=== PATIENT | male | born 1950 | race Caucasian/White ===

== ENCOUNTER → 2016-07-02 | Outpatient (CLI) | payer MEDICAID ==
[2016-07-02 11:02] LABS: ALT 48 U/L (21-72); AST 33 U/L (17-59); Anion Gap 8 mmol/L; Blood Urea Nitrogen 15 mg/dL (9-20); Calcium 9.4 mg/dL (8.4-10.2); Carbon Dioxide 31 mmol/L (22-30); Chloride 105 mmol/L (98-107); Cholesterol 132 mg/dL (<200); Glucose 92 mg/dL (74-99); HDL Cholesterol 32 mg/dL (40-60); Non-African American GFR(MDRD) 57 (>60 ml/min/1.73 sqM); Potassium 4.7 mmol/L (3.5-5.1); Sodium 144 mmol/L (137-145); Triglycerides 223 mg/dL (<150)
[2016-07-02 11:12] LABS: CHCM 34.8; HCT 45.3 % (39.0-53.0); HDW 2.73; HGB 15.4 gm/dL (13.0-17.5); MCH 31.3 pg (25.0-35.0); MCV 92.1 fL (80.0-100.0); Mean Platelet Volume 7.8; RBC 4.92 m/uL (4.30-5.90); RDW 12.1 % (11.5-15.5); WBC 5.3 k/uL (3.8-10.6)
== END | disposition home or self-care (01) ==
LOC: LABWHC1 09:16
PROVIDERS: ATTEND Family Medicine
DX: E78.5 Hyperlipidemia, unspecified (principal)
CPT/HCPCS: 36415; 80048; 80061; 84450; 84460; 85027

== ENCOUNTER → 2016-07-16 | Outpatient (CLI) | payer MEDICAID ==
[2016-07-16 14:12] LABS: Anion Gap 13 mmol/L; Blood Urea Nitrogen 11 mg/dL (9-20); Calcium 9.1 mg/dL (8.4-10.2); Carbon Dioxide 26 mmol/L (22-30); Chloride 105 mmol/L (98-107); Glucose 101 mg/dL (74-99); Non-African American GFR(MDRD) >60 (>60 ml/min/1.73 sqM); Potassium 3.9 mmol/L (3.5-5.1); Sodium 144 mmol/L (137-145)
== END | disposition home or self-care (01) ==
LOC: LABWHC1 13:33
PROVIDERS: ATTEND Family Medicine
DX: R89.9 Unspecified abnormal finding in specimens from other organs, systems and tissues (principal)
CPT/HCPCS: 36415; 80048

== ENCOUNTER 2017-02-15 11:31 | Day surgery (SDC) | payer MEDICAID ==
[2017-02-11 09:57] VITALS: BMI 31.5
[~2017-02-15 11:31] MED LIST: LACTATED RINGERS 1,000 ML IV SCH; LIDOCAINE 1% 20 ML VIAL (10MG/ML) FOR IV START INTRADERMA PRN
[2017-02-15 11:48] VITALS: RESP 16; TEMP 98.5
[2017-02-15] MEDS ORDERED: PROPOFOL 10 MG/ML 20 ML VIAL IV ONE (12:38)
--- NOTE | 2017-02-15 13:04 | P.PCN ---
Date of Procedure: 02/15/17 Procedure(s) Performed: Procedure: Esophagogastroduodenoscopy and biopsy. Operative diagnosis: Chronic reflux symptoms requiring twice a day therapy. Postoperative diagnosis: 1. Sliding hiatal hernia with no obvious esophagitis or complicated reflux disease. 2. Mild antral gastritis. 3. Multiple biopsies obtained from the duodenum, antrum and esophagus. Preparation and sedation: Was provided by anesthesia. Brief clinical history: The patient is a 66-year-old male who is referred for this evaluation because of history of chronic reflux requiring PPI therapy in the morning and H2 bhargav therapy in the evening with incomplete control of his symptoms. There is no alarm symptoms. His last EGD was in November 2005. This evaluation is to assess the degree of his esophagitis rule out complicated reflux disease or other pathology. Procedure: With the patient on his left lateral decubitus position and after informed consent and adequate sedation, I passed the Olympus-GIF 160 video upper endoscope through the cricopharyngeus down the esophagus. GE junction was around 40 cm from the incisors and there was a 2-3 cm sliding hiatal hernia. The esophagus did not show any obvious erosions, ulcers, strictures or Rico's esophagus. The endoscope was then passed into the stomach which was insufflated with air and inspected in detail including the retroflex view in the cardia. There was some mottling and erythema in the antrum but no ulcers or erosions. Pyloric channel, duodenal bulb, post bulbar area and descending duodenum appeared within normal limits. Because of his symptoms, I obtained biopsies from the duodenum, antrum and esophagus then the endoscope was withdrawn. The patient tolerated the procedure well. Plan: The patient was reassured. Will await biopsy results. He will follow up with you as planned and additional recommendations will be made based on his course and biopsy results.
[2017-02-15 13:36] VITALS: BP 138/80; PULSE 52
== END 2017-02-15 13:37 | disposition home or self-care (01) ==
LOC: ORWHC2ENDO 11:31
DX: K29.50 Unspecified chronic gastritis without bleeding (principal); K21.9 Gastro-esophageal reflux disease without esophagitis; K44.9 Diaphragmatic hernia without obstruction or gangrene; I10 Essential (primary) hypertension; E78.5 Hyperlipidemia, unspecified; Z79.899 Other long term (current) drug therapy
CPT/HCPCS: 88305; 88342; 43239; J2704

== ENCOUNTER → 2017-10-27 | Outpatient (CLI) | payer MEDICAID ==
--- NOTE | 2017-10-27 19:43 | CONS ---
CONSULTATION REASON FOR CONSULTATION: Sleep apnea. French is 66, he is coming in due to concerns of sleep apnea. He has loud snoring. His has also noted some occasional few apneas. This raises concern for obstructive sleep apnea. He goes to bed around 10:00 pm, wakes up 6:00 am in the morning. He wakes up refreshed, does not fall asleep during the day to day activities although by the late evening he feels tired. He does not fall asleep at work and does not fall asleep while driving. He does not fall asleep while doing routine day-to-day activities. His current [place] score was 4. No recent weight gain. His weight has been stable. He does drink alcohol occasionally at nighttime. No smoking. He goes to bed around 10:00 pm, wakes up 6:00 am in the morning. He wakes up 7 to 8 am in the morning on weekends. No restlessness in the lower extremities. No reported nightmares or any unusual behavior at night time. PAST MEDICAL HISTORY: Hyperlipidemia and hypertension. PAST SURGICAL HISTORY: Left shoulder surgery. DRUG ALLERGIES: Not known. MEDICATIONS: At home are daily vitamins, Norvasc 5 daily and Lipitor 10 daily and Omeprazole 20 daily. SOCIAL HISTORY: The patient is a nonsmoker. No history of alcohol. No history of drugs. FAMILY HISTORY: Negative for sleep apnea. REVIEW OF SYSTEMS: 12-point review of system was done. Positive findings are mentioned above in the history of present illness. PHYSICAL EXAMINATION: His current vitals is blood pressure is 120/86, pulse 60, respirations 16, temp 98.0, Saturation 97% on room air. Weight is 223. Height is 5 feet 9 inches. Neck is 17.5 inches. [place] score was 4. BMI 32.9. GENERAL APPEARANCE: Calm, comfortable. Head is atraumatic, normocephalic. NECK: Supple. There is no JVD. No goiter or neck masses. Mallampati class 2. LUNGS: Clear to auscultation. HEART: Sounds regular rate and rhythm. Normal S1, S2. No S3, S4. No murmurs. ABDOMEN: Soft, nontender. No organomegaly. EXTREMITIES: No edema. No cyanosis or clubbing. IMPRESSION AND PLAN: 1. Loud snoring, questionable apneas, rule out underlying obstructive sleep apnea. 2. Hypertension. 3. Hyperlipidemia. 4. Obstructive sleep apnea is possible though my overall suspicion is low. We will do a screening home study to assess the presence or rule out sleep apnea. 5. Encourage weight loss. 6. Sleep hygiene measures are good and appropriate. 7. We will continue to follow and I will make further recommendations based on results of the home sleep study testing. ELOY / LAIN: [id number] /
== END | disposition home or self-care (01) ==
LOC: SLEEP 13:53
PROVIDERS: ATTEND Internal Medicine Critical Care Medicine
DX: R06.83 Snoring (principal); I10 Essential (primary) hypertension; E78.5 Hyperlipidemia, unspecified
CPT/HCPCS: 99211

== ENCOUNTER → 2021-06-25 | Outpatient (CLI) | payer MEDICARE, OTHER ==
--- NOTE | 2021-06-26 05:44 | MR ---
EXAMINATION TYPE: MR shoulder LT wo con DATE OF EXAM: 06/25/2021 COMPARISON: HISTORY: Left shoulder pain Multiplanar multiecho imaging of the left shoulder without contrast. There is a 1 cm irregular area of fluid signal at the greater tuberosity humerus that could be degene rative cyst. There is no evidence of a full-thickness tear of the supraspinatus tendon. There is no r etraction. There is some widening of the AC joint space consistent with old ligamentous tear. No sign ificant fluid. The space measures 12 mm. The biceps tendon appears intact. Subscapularis tendon is intact. Glenoid edward appear normal. There is no significant joint fluid. There is some very minimal increased signal in the supraspinatus tendo n on the inferior surface. I see no bony destructive process. The glenoid edward appear intact. IMPRESSION: There is some widening of the AC joint space consistent with old ligamentous tear. No evidence of full-thickness rotator cuff tear. There is minor degenerative signal changes on the in ferior surface of the supraspinatus tendon.
== END | disposition home or self-care (01) ==
LOC: RADMRIMAIN 16:27
PROVIDERS: ATTEND Orthopaedic Surgery
DX: M19.012 Primary osteoarthritis, left shoulder (principal)

== ENCOUNTER 2023-05-04 09:19 | Day surgery (SDC) | payer MEDICARE, OTHER ==
[~2023-05-04 09:19] MED LIST changes: +LIDOCAINE 1% (10MG/ML) FOR IV START INTRADERMA PRN; -LIDOCAINE 1% 20 ML VIAL (10MG/ML) FOR IV START INTRADERMA PRN
[2023-05-04 09:52] VITALS: TEMP 97.2
[2023-05-04] MEDS ORDERED: LIDOCAINE 1% INJ 10MG/ML (20 ML MDV) ONE (10:41)
[2023-05-04] MEDS ORDERED: PROPOFOL 10 MG/ML 20 ML VIAL IV ONE (10:41)
--- NOTE | 2023-05-04 11:04 | P.PCN ---
Date of Procedure: 05/04/23 Procedure(s) Performed: Brief history: Patient is a pleasant 72-year-old white male scheduled for an elective upper endoscopy as well as colonoscopy as a part of evaluation of GERD and screening for colon cancer Procedure performed: Esophagogastroduodenoscopy with biopsy Colonoscopy with snare polypectomy Preoperative diagnosis: GERD Screening for colon cancer Anesthesia: MAC Procedure: After informed consent was obtained from the patient was brought into the endoscopy unit and IV sedation was administered by anesthesia under continuous monitoring. Initially upper endoscopy was done. The Olympus GF 160 video endoscope was inserted inserted into the mouth and esophagus intubated without any difficulty and was gradually advanced into the stomach and duodenum and carefully examined. The bulb and second part of the duodenum appeared normal. The scope was then withdrawn into the stomach adequately insufflated with air and upon careful examination the antrum and body, cardia and fundus appeared normal. Multiple small gastric polyps noted which were biopsied. The scope was then withdrawn into the esophagus. Small hiatal hernia noted. The GE junction was located at 40 cm to the incisors. It appeared regular with no erythema erosions or ulcerations. Rest of the esophagus appeared normal. Patient tolerated the procedure well. At this time the patient continued to remain sedation. Initial digital rectal examination was normal. Olympus CF 160 video colonoscope was then inserted into the rectum and gradually advanced to the cecum without any difficulty. Careful examination was performed as the scope was gradually being withdrawn. The prep was excellent. The cecum, ascending colon, transverse colon, descending colon appeared normal. In the sigmoid there was a 7 mm polyp that was removed by snare polypectomy. Diffuse diverticulosis more prominent in the left colon. Rest of the, sigmoid colon and rectum appeared normal. Retroflexion was performed in the rectum and no lesions were noted. Patient tolerated the procedure well. Impression: 1. Upper endoscopy revealed small hiatal hernia and multiple gastric polyps 2. Colonoscopy revealed 7 mm sigmoid polyp status post polypectomy and scattered diffuse diverticulosis Recommendations: Findings of this examination were discussed with the patient as well as his family. He was advised to follow with the biopsy results. If the biopsy result adenoma, recommend repeat colonoscopy in 5 years
[2023-05-04 11:31] VITALS: RESP 16
[2023-05-04 11:56] VITALS: BP 118/74; PULSE 55
== END 2023-05-04 11:41 | disposition home or self-care (01) ==
LOC: ORWHC2ENDO 09:19
PROVIDERS: ATTEND Internal Medicine Gastroenterology
DX: Z12.11 Encounter for screening for malignant neoplasm of colon (principal); K31.7 Polyp of stomach and duodenum; K44.9 Diaphragmatic hernia without obstruction or gangrene; D12.5 Benign neoplasm of sigmoid colon; K21.9 Gastro-esophageal reflux disease without esophagitis; K57.30 Diverticulosis of large intestine without perforation or abscess without bleeding; I10 Essential (primary) hypertension; E78.5 Hyperlipidemia, unspecified; F17.200 Nicotine dependence, unspecified, uncomplicated; Z79.899 Other long term (current) drug therapy
CPT/HCPCS: 88305; 45385; 43239; J2001; J2704